=== PATIENT | male | born 1990 | race Caucasian/White ===

== ENCOUNTER 2022-05-07 10:44 | Emergency (ER) | payer OTHER, SELFPAY ==
--- NOTE | 2022-05-07 11:07 | ED.URI ---
HPI - URI/Sore Throat General Chief Complaint: Upper Respiratory Infection Stated Complaint: uri Time Seen by Provider: 05/07/22 11:07 Source: patient Mode of arrival: ambulatory Limitations: no limitations History of Present Illness HPI Narrative: Hay is a 31-year-old male patient presenting to the clinic today with complaints of sore throat times 2-3 days. He reports no fever or chills MD elicited complaint: sore throat and nasal congestion Related Data Allergies Allergy/AdvReac Type Severity Reaction Status Date / Time peanut Allergy Mild HIVES Unverified 08/23/08 13:59 Review of Systems Review of Systems: Pertinent positives per HPI. Patient denies any fever, chills, rash, headache, visual changes, dizziness, cough, shortness of breath, chest pain, palpitations, nausea, vomiting, diarrhea, constipation, abdominal pain, or any urinary issues. PMFSH Comments At the time of my signature, I reviewed and agree with the nursing past medical, surgical, social, and family history. There is no relevant family history pertinent to the patient complaint. Exam Narrative: General: Well-developed, well nourished, in no apparent distress Head: Normocephalic, atraumatic Eyes: Pupils equally round and reactive to light bilaterally, EOM intact, sclera and conjunctive clear, no discharge, lids normal Ears: TMs intact and clear, ear canals clear, no drainage, grossly hearing normal. Nose: Nares patent, no discharge, no inflammation, no sinus tenderness. Mouth: Oral pharynx without lesions or masses, good dentition, MMM. oropharynx red Neck: Supple, trachea midline, no enlargement of anterior or posterior cervical nodes, no thyroid masses or goiter palpable. Cardio: Regular rate and rhythm, s1 and s2 normal, no murmur appreciated. Resp: Clear to auscultation bilaterally, no rhonchi, rales, wheezing or rubs Course Course Emergency Course: Portions of this record may have been created with voice recognition software. Level of Care: Express Care Visit Vital Signs Vital signs: Vital Signs Temperature 37.1 C 05/07/22 11:14 Pulse Rate 67 05/07/22 11:14 Respiratory Rate 16 05/07/22 11:14 Blood Pressure 143/102 H 05/07/22 11:14 Pulse Oximetry 98 05/07/22 11:14 Oxygen Delivery Room Air 05/07/22 11:14 Temperature 37.1 C 05/07/22 11:14 Pulse Rate 67 05/07/22 11:14 Respiratory Rate 16 05/07/22 11:14 Blood Pressure 143/102 H 05/07/22 11:14 Pulse Oximetry 98 05/07/22 11:14 Oxygen Delivery Room Air 05/07/22 11:14 Vital signs reviewed MDM - URI/Sore Throat MDM Narrative Medical decision making narrative: At the time of visit patient is resting comfortably on exam table. strep screen was obtained and was positive in the clinic today. Prescription for amoxicillin was sent to the pharmacy. Supportive measures were discussed with the patient he voiced understanding discharge instructions agrees to treatment plan. Differential Diagnosis Differential diagnosis: Likely upper respiratory infection, otitis media, sinusitis, viral infection, bronchitis, influenza, pharyngitis and other ( COVID) Lab Data Labs: Strep Screen Positive Group A Strep *(Reference Range: Negative)* Strep Screen Positive Group A Strep *(Reference Range: Negative)* Discharge Plan Discharge Clinical Impression: Strep throat Patient Disposition: Home, Self-Care Condition: Stable Instructions: Antibiotic Form, Strep Throat (ED) Additional Instructions: Take prescription medications only as prescribed- amoxicillin Change toothbrush in 24 hours after initiation antibiotics Increase fluids and stay well hydrated Tylenol/motrin for pain/fever Flonase and OTC antihistamines as directed Vicks vapor rub to open sinuses Sinus rinses for congestion Cepacol spray, cough drops, throat lozenges, w
[2022-05-07 11:14] VITALS: BP 143/102; PULSE 67; RESP 16; TEMP 37.1; O2SAT 98
== END 2022-05-07 11:50 | disposition home or self-care (01) ==
PROVIDERS: Emergency Provider Nurse Practitioner Family
DX: J02.0 Streptococcal pharyngitis (principal)
CPT/HCPCS: 87880; 99213; G0463

== ENCOUNTER 2022-07-11 17:44 | Emergency (ER) | payer OTHER, SELFPAY ==
[2022-07-11] VITALS (9 sets, daily range): BP systolic 122–162; BP diastolic 78–94; PULSE 42–62; RESP 13–25; TEMP 36.9; O2SAT 98–100
--- NOTE | ~2022-07-11 | XR_ITS ---
EXAMINATION: XR chest 2V DATE: 07/11/2022 18:02 INDICATION: Chest pain TECHNIQUE: Frontal and lateral views of the chest are obtained COMPARISON: None available FINDINGS: The lungs are free of acute opacities. No pleural effusion or pneumothorax. The cardiomedia stinal silhouette is normal. There is mild thoracic spondylosis. IMPRESSION: 1. No acute cardiopulmonary abnormality. Reviewed, dictated and finalized at location F. 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
--- NOTE | 2022-07-11 17:47 | ECG_ITS ---
Measurements Intervals [place] Rate: 49 P: 37 [place]: 138 QRS: -16 QRSD: 105 T: 0 QT: 446 QTc: 404 Interpretive Statements SINUS BRADYCARDIA VOLTAGE CRITERIA FOR LVH BORDERLINE R WAVE PROGRESSION, ANTERIOR LEADS BORDERLINE T WAVE ABNORMALITY- INFERIOR LEADS BORDERLINE ECG NO PREVIOUS ECG AVAILABLE FOR COMPARISON Electronically Signed On 07-12-2022 6:35:19 SENIOR NETWORK ENGINEER by Johan Zarco D.O.
[2022-07-11 18:02] LABS: Basophils Percent Auto 0.4 % (0.2-1.2); Eosinophils Absolute Auto 0.2 K/mm3 (0-0.3); Eosinophils Percent Auto 2.7 % (0-4.4); Hematocrit 43.1 % (42.0-52.0); Hemoglobin 15.1 g/dL (14.0-18.0); Immature Granulocyte Absolute 0.02 K/mm3 (0.00-0.031); Immature Granulocyte Percent A 0.3 % (0-0.5); Lymphocytes Absolute Auto 3.39 K/mm3 (0.9-3.2); Lymphocytes Percent Auto 46.2 % (18.3-44.2); Mean Corpuscular Hemoglobin 31.1 pg (26-34); Mean Corpuscular Volume 88.9 fl (80-100); Mean Platelet Volume 9.3 fl (7.4-10.4); Monocytes Absolute Auto 0.6 K/mm3 (0.1-0.6); Monocytes Percent Auto 8.3 % (2.6-8.5); Neutrophils Absolute Auto 3.1 K/mm3 (1.3-6.7); Neutrophils Percent Auto 42.1 % (45.5-73.1); Platelet Count Result 242 k/mm3 (150-375); Red Blood Count 4.85 M/mm3 (4.6-6.20); Red Cell Distribution Width 12.6 % (11.5-14.5); White Blood Count 7.3 K/mm3 (4.5-10.0)
[2022-07-11 18:15] LABS: Prothrombin Time 12.6 Seconds (11.1-14.7)
[2022-07-11 18:17] LABS: Alanine Aminotransferase 93 U/L (6-50); Albumin Level 4.9 g/dL (3.5-5.1); Alkaline Phosphatase 99 U/L (38-126); Anion Gap 9 mmol/L (8-16); Aspartate Amino Transferase 51 U/L (17-59); Bilirubin,Total 0.7 mg/dL (0.2-1.3); Blood Urea Nitrogen 10 mg/dL (9-20); Calcium 9.3 mg/dL (8.4-10.2); Carbon Dioxide 28 mmol/L (22-30); Chloride 101 mmol/L (98-107); Estimated Glomerular Filt Rate > 60; Glucose 106 mg/dL (65-110); Lipase 77 U/L (23-300); Potassium 3.4 mmol/L (3.4-5.0); Sodium 138 mmol/L (137-145)
[2022-07-11 18:28] LABS: Troponin I < 0.012 ng/mL (0.000-0.034)
[2022-07-11 22:01] LABS: Troponin I < 0.012 ng/mL (0.000-0.034)
--- NOTE | 2022-07-11 23:15 | ECG_ITS ---
Measurements Intervals [place] Rate: 40 P: 29 [place]: 143 QRS: -18 QRSD: 108 T: -5 QT: 471 QTc: 388 Interpretive Statements SINUS BRADYCARDIA DELAYED PRECORDIAL R/S TRANSITION VOLTAGE CRITERIA FOR LVH BORDERLINE T WAVE ABNORMALITY- INFERIOR LEADS ABNORMAL ECG COMPARED TO ECG 07/11/2022 17:52:51 NO SIGNIFICANT CHANGES Electronically Signed On 07-12-2022 6:51:07 SHEATHER by Johan Zarco D.O.
--- NOTE | 2022-07-11 23:35 | PC.NURSE ---
Report received from COURTNEY Max. Assumed care of patient at this time.
--- NOTE | 2022-07-11 23:42 | ED.GENADULT ---
HPI - General Adult General Chief complaint: Chest Pain Stated complaint: chest pain Time Seen by Provider: 07/11/22 21:29 History of Present Illness HPI narrative: Patient a 31-year-old gentleman who presents the emergency department with chief complaint of chest pain. The patient reports this evening he had some tingling in his left arm and noticed little bit of tightness in the left arm and the left side of the chest. Patient decided to come to the emergency department for evaluation the patient reports no prior history of cardiac disease reports that he is not on a antihypertensives or other medications for blood pressure patient reports no significant family history of early cardiac disease patient's father had cardiac disease in his 50s. Related Data Allergies Allergy/AdvReac Type Severity Reaction Status Date / Time No Known Allergies Allergy Verified 07/11/22 21:29 Review of Systems Review of Systems: A 10 system review of systems was completed on the patient and is negative except for what is stated in the HPI. Nursing and ancillary documentation was reviewed. Exam Narrative: GENERAL: Well-appearing, well-nourished, and in no acute distress. HEAD: Normocephalic, atraumatic. EYES: PERRLA and EOMI. ENT: Nares clear, no rhinorrhea or epistaxis. Mucous membranes moist. NECK: Supple. CHEST: Clear to auscultation. No respiratory distress. HEART: Regular rate and rhythm. No murmur heard. Normal peripheral pulses. ABDOMEN: Soft, nontender, nondistended, normal active bowel sounds. EXTREMITIES: Normal range of motion. No edema. SKIN: Warm, dry, no rash. NEURO: No focal deficits. Alert and oriented x3. PSYCH: Normal mood and affect. Course Vital Signs Vital signs: Vital Signs Temperature 36.9 C 07/11/22 17:46 Pulse Rate 62 07/11/22 17:46 Respiratory Rate 18 07/11/22 17:46 Blood Pressure 162/94 H 07/11/22 17:46 Pulse Oximetry 100 07/11/22 17:46 Oxygen Delivery Room Air 07/11/22 17:46 Temperature 36.9 C 07/11/22 17:46 Pulse Rate 43 L 07/11/22 21:45 Respiratory Rate 23 H 07/11/22 21:45 Blood Pressure 129/79 07/11/22 21:16 Pulse Oximetry 98 07/11/22 21:45 Oxygen Delivery Room Air 07/11/22 17:46 Medical Decision Making MDM Narrative Medical decision making narrative: Differential diagnosis includes ACS, dysrhythmia, electrolyte abnormality. Initial EKG is sinus bradycardia rate of [address] elevation or ST depression Repeat EKG shows sinus bradycardia with a rate of [address] elevation or ST depression. Laboratory studies were obtained which showed negative troponin for 2 sets. Rest of electrolytes are within normal limits including potassium that was 3.4. Chest x-ray showed no focal infiltrates Patient's pain is much better at this time. Due to the patient's bradycardia the case was discussed with Dr. Zarco of cardiology who will see the patient in the office patient is to call the office on Thursday morning. Vital Signs Vital Signs: Vital Signs Temperature 36.9 C 07/11/22 17:46 Pulse Rate 62 07/11/22 17:46 Respiratory Rate 18 07/11/22 17:46 Blood Pressure 162/94 H 07/11/22 17:46 Pulse Oximetry 100 07/11/22 17:46 Oxygen Delivery Room Air 07/11/22 17:46 Temperature 36.9 C 07/11/22 17:46 Pulse Rate 43 L 07/11/22 21:45 Respiratory Rate 23 H 07/11/22 21:45 Blood Pressure 129/79 07/11/22 21:16 Pulse Oximetry 98 07/11/22 21:45 Oxygen Delivery Room Air 07/11/22 17:46 Lab Data 07/11/22 17:54 07/11/22 17:54 Labs: Lab Results 07/11/22 07/11/22 07/11/22 Range/Units 17:54 17:54 17:54 WBC 7.3 (4.5-10.0) K/mm3 RBC 4.85 (4.6-6.20) M/mm3 Hgb 15.1 (14.0-18.0) g/dL Hct 43.1 (42.0-52.0) % MCV 88.9 (80-100) fl MCH 31.1 (26-34) pg MCHC 35.0 (32-36) g/dl RDW 12.6 (11.5-14.5) % Plt Count 242 (150-375) k/mm3 MPV 9.3 (7.4-10.4) fl Immature Gran %
[2022-07-12 00:08] LABS: NT Pro B Type Natriuretic Pept 44 pg/mL (19.9-100)
== END 2022-07-12 | disposition home or self-care (01) ==
PROVIDERS: Emergency Medicine; Emergency Provider Emergency Medicine
DX: R07.9 Chest pain, unspecified (principal); R00.1 Bradycardia, unspecified
CPT/HCPCS: 36415; 71046; 80053; 83690; 83880; 84484; 85025; 85610; 85730; 93005; 99284

== ENCOUNTER 2022-09-01 08:30 | Outpatient (CLI) | payer OTHER, SELFPAY ==
--- NOTE | 2022-09-01 | ECHO_ITS ---
Patient Info Name: Hay Oshea Age: 32 years : 1990 Gender: Male Ht: 71 in Wt: 255 lbs BSA: 2.45 m2 HR: 50 bpm BP: 127 / 79 mmHg Heart Rhythm: Sinus Rhythm Technical Quality: Good Exam Date: 09/01/2022 9:00 AM Exam Location: [facility] Patient Status: Outpatient Admit Date: 09/01/2022 Staff Ordering Physician: Osbaldo Radford MD Tare Weigher: Melanie Justice RDCS Attending Provider: Osbaldo Radford MD Referring Physician: Prabhakar BLUM; Exam Type: CA echo doppler color flow Study Info Indications I10 - Essential (primary) hypertension R07.89 - Other chest pain Complete two-dimensional, color flow and Doppler transthoracic echocardiogram is performed. Strain analysis performed. Summary 1. Complete two-dimensional, color flow and Doppler transthoracic echocardiogram is performed. 2. Strain analysis performed. 3. Left ventricular chamber dimension is normal. 4. Left ventricular systolic function is normal, estimated at 65-70%. 5. There is mildly increased left ventricular wall thickness. 6. The left ventricular diastolic function is normal. 7. Global longitudinal strain is normal at -18 %. 8. There is mild tricuspid valve regurgitation. Left Ventricle Left ventricular chamber dimension is normal. Left ventricular systolic function is normal, estimated at 65-70%. There is mildly increased left ventricular wall thickness. The left ventricular diastolic function is normal. Global longitudinal strain is normal at -18 %. Right Ventricle Right ventricular chamber dimension is normal. Right ventricular systolic function is normal. Left Atria Left atrial chamber dimension is normal. Right Atria Right atrial chamber dimension is normal. Atrial Septum Intact interatrial septum visualized by color flow imaging. Aortic Valve The aortic valve is not well visualized. There is no aortic valve stenosis. There is trace aortic valve regurgitation. Pulmonic Valve The pulmonic valve is normal. There is no pulmonic valve stenosis. There is trace pulmonic regurgitation. Mitral Valve The mitral valve has normal leaflets. There is no mitral valve stenosis. There is trace mitral valve regurgitation. Tricuspid Valve The tricuspid valve leaflets are normal. There is no significant tricuspid valve stenosis. There is mild tricuspid valve regurgitation. No pulmonary hypertension, estimated pulmonary arterial systolic pressure is 33 mmHg. Pericardium/Pleural The pericardium appears normal. There is no pericardial effusion. Inferior Vena Cava Normal inferior vena cava with >50% collapse upon inspiration consistent with normal right atrial pressure, 8 mmHg. Aorta The aortic root size at the sinus of Valsalva is normal. Left Ventricular Outflow Tract Name Value Normal LVOT 2D LVOT Diameter 2.0 cm LVOT Doppler LVOT Peak Gradient 6 mmHg LVOT Mean Gradient 3 mmHg LVOT VTI 24 cm LVOT VTI/AV VTI Ratio 0.8 LVOT Stroke Volume
== END 2022-09-01 08:31 | disposition home or self-care (01) ==
LOC: ANHCARD 08:30
PROVIDERS: Visit Provider Internal Medicine Cardiovascular Disease
DX: I07.1 Rheumatic tricuspid insufficiency (principal); R07.89 Other chest pain; I10 Essential (primary) hypertension; Z82.49 Family history of ischemic heart disease and other diseases of the circulatory system; F17.200 Nicotine dependence, unspecified, uncomplicated
CPT/HCPCS: 93306

== ENCOUNTER 2023-05-13 10:11 | Emergency (ER) | payer OTHER, SELFPAY ==
[2023-05-13 10:19] VITALS: BP 131/88; PULSE 55; RESP 16; TEMP 37.6; O2SAT 98
--- NOTE | 2023-05-13 10:23 | ED.HA ---
HPI - Headache General Chief Complaint: Eye Problems Stated Complaint: left eye pain,headache Time Seen by Provider: 05/13/23 10:23 Source: patient Mode of arrival: ambulatory Limitations: no limitations History of Present Illness HPI Narrative: Hay is a 32-year-old male patient presenting to the clinic today with complaints of left eye discomfort (pressure/watering), ear pain, and headache x3 days. He reports no loss of hearing. Wears glasses and has not seen his eye doctor in a while and states he is due for an eye exam. Denies any fever or chills. Temperature was 37.6? C in the clinic today. Related Data Home Medications Medication Instructions Recorded Confirmed losartan 50 mg tablet 50 mg DAILY 05/13/23 05/13/23 Allergies Allergy/AdvReac Type Severity Reaction Status Date / Time No Known Allergies Allergy Verified 05/13/23 11:20 Review of Systems Review of Systems: Pertinent positives per HPI. Patient denies any fever, chills, rash, visual changes, dizziness, cough, runny nose, sore throat, shortness of breath, chest pain, palpitations, nausea, vomiting, diarrhea, constipation, abdominal pain, or any urinary issues. PMFSH Comments At the time of my signature, I reviewed and agree with the nursing past medical, surgical, social, and family history. There is no relevant family history pertinent to the patient complaint. Exam Narrative: General: Well-developed, well nourished, in no apparent distress Head: Normocephalic, atraumatic Eyes: Pupils equally round and reactive to light bilaterally, EOM intact, sclera and conjunctive clear, no discharge, lids normal, Wood's lamp exam was performed and shows no sign of corneal abrasion, no obvious foreign body visualized in the left eye Ears: TMs intact and clear, left ear canal with mild redness, tenderness to palpation over the left tragus and over the left mastoid bone with mild redness and swelling, no drainage, grossly hearing normal. Nose: Nares patent, no discharge, no inflammation, no sinus tenderness. Mouth: Oropharynx without lesions or masses, good dentition, MMM. Neck: Supple, trachea midline, no enlargement of anterior or posterior cervical nodes, no thyroid masses or goiter palpable. Cardio: Regular rate and rhythm, s1 and s2 normal, no murmur appreciated. Resp: Clear to auscultation bilaterally anteriorly and posteriorly, no rhonchi, rales, wheezing or rubs Course Course Emergency Course: Portions of this record may have been created with voice recognition software. Level of Care: Express Care Visit Vital Signs Vital signs: Vital Signs Temperature 37.6 C H 05/13/23 10:19 Pulse Rate 55 L 05/13/23 10:19 Respiratory Rate 16 05/13/23 10:19 Blood Pressure 131/88 05/13/23 10:19 Pulse Oximetry 98 05/13/23 10:19 Oxygen Delivery Room Air 05/13/23 10:19 Temperature 37.6 C H 05/13/23 10:19 Pulse Rate 55 L 05/13/23 10:19 Respiratory Rate 16 05/13/23 10:19 Blood Pressure 131/88 05/13/23 10:19 Pulse Oximetry 98 05/13/23 10:19 Oxygen Delivery Room Air 05/13/23 10:19 Vital signs reviewed Transfer Transfered to: [facility] Transportation: Other (Private) Transfer rationale: Headache, left mastoid pain, left eye pain Accepting physician: Dr. Chavez Transfer comments: private car Procedures Other Procedure Procedure 1: Other Procedure: Wood's lamp exam was performed-2 drops of topical anesthetic (tetracaine) was instilled with good anesthesia. Fluorescein stain of the left eye was performed without uptake of dye. No epithelial defect was noted. NO FB, ulcer or dendritic lesions. Upper lid was everted and no FB or lesions were noted. No Jef sign. Normal saline irrigation eye solution was performed and the patient tolerated the procedure well, no adverse reaction or complications. MDM - Headache MDM Narrative Medical decision making narrative: At the time of visit patient is resti
== END 2023-05-13 11:00 | disposition short-term general hospital (02) ==
LOC: EXPCOLL 10:14
PROVIDERS: Emergency Provider Nurse Practitioner Family
DX: H57.12 Ocular pain, left eye (principal); H92.02 Otalgia, left ear; R51.9 Headache, unspecified; I10 Essential (primary) hypertension
CPT/HCPCS: 99212; A9270; G0463

== ENCOUNTER 2023-05-13 11:14 | Emergency (ER) | payer OTHER, SELFPAY ==
--- NOTE | ~2023-05-13 | CT_ITS ---
EXAMINATION: CT facial bones w con DATE: 05/13/2023 14:31 INDICATION: Left mastoid tenderness with left eye pressure and ear pain TECHNIQUE: Computed tomography (CT) of the facial bones and maxillofacial region was performed with 7 5 mL Omnipaque-350 intravenous contrast. Coronal reconstructions were obtained. Automated exposure co ntrol and iterative reconstruction technique were employed. The dose-length product was 326.97 mGy-cm . COMPARISON: None. FINDINGS: Mastoid air cells and middle ear cavities are clear. There is subtle asymmetric soft tissue swelling and stranding about the left external auditory canal suggestive of otitis externa. The paranasal sinu ses are clear. Orbits are normal. The bilateral parotid and submandibular glands are normal. There ar e few asymmetrically enlarged but still normal-sized left periauricular and retroauricular lymph node s which are likely reactive. There are otherwise symmetric normal sized nodes at the face and visuali zed neck. No abnormal masses or fluid collections identified. Visualized portion of the brain are nor mal. Minimal upper cervical spondylosis. IMPRESSION: 1. Left otitis externa with likely reactive mild left periventricular lymphadenopathy. Reviewed, dictated and finalized at location A. ARE MANAGER IMPRESSION: 1. Left otitis externa with likely reactive mild left periventricular lymphaden opathy.
[2023-05-13 11:19] VITALS: BP 148/95; PULSE 58; RESP 18; TEMP 36.9; O2SAT 100
[2023-05-13 14:01] LABS: Basophils Absolute Auto 0.1 K/mm3 (0.0-0.1); Basophils Percent Auto 0.8 % (0.2-1.2); Eosinophils Absolute Auto 0.1 K/mm3 (0-0.3); Eosinophils Percent Auto 1.9 % (0-4.4); Hematocrit 45.5 % (42.0-52.0); Hemoglobin 15.2 g/dL (14.0-18.0); Immature Granulocyte Absolute 0.01 K/mm3 (0.00-0.031); Immature Granulocyte Percent A 0.2 % (0-0.5); Lymphocytes Absolute Auto 2.32 K/mm3 (0.9-3.2); Lymphocytes Percent Auto 37.4 % (18.3-44.2); Mean Corpuscular HGB Conc 33.4 g/dl (32-36); Mean Corpuscular Hemoglobin 30.5 pg (26-34); Mean Corpuscular Volume 91.4 fl (80-100); Mean Platelet Volume 9.6 fl (7.4-10.4); Monocytes Absolute Auto 0.6 K/mm3 (0.1-0.6); Monocytes Percent Auto 9.5 % (2.6-8.5); Neutrophils Absolute Auto 3.1 K/mm3 (1.3-6.7); Neutrophils Percent Auto 50.2 % (45.5-73.1); Platelet Count Result 250 k/mm3 (150-375); Red Blood Count 4.98 M/mm3 (4.6-6.20); White Blood Count 6.2 K/mm3 (4.5-10.0)
[2023-05-13 14:13] LABS: Alanine Aminotransferase 83 U/L (6-50); Albumin Level 4.4 g/dL (3.5-5.1); Alkaline Phosphatase 72 U/L (38-126); Anion Gap 7 mmol/L (8-16); Aspartate Amino Transferase 53 U/L (17-59); Bilirubin,Total 1.1 mg/dL (0.2-1.3); Blood Urea Nitrogen 9 mg/dL (9-20); Calcium 9.2 mg/dL (8.4-10.2); Carbon Dioxide 27 mmol/L (22-30); Chloride 104 mmol/L (98-107); Estimated CRCL calculation 194 ml/min; Estimated Glomerular Filt Rate > 60; Glucose 90 mg/dL (65-110); Potassium 4.1 mmol/L (3.4-5.0); Sodium 138 mmol/L (137-145)
--- NOTE | 2023-05-13 14:19 | ED.EYEPROB ---
HPI - Eye Problem General Chief complaint: Eye Problems Stated complaint: eye pressure Time Seen by Provider: 05/13/23 11:52 Source: patient Mode of arrival: ambulatory Limitations: no limitations History of Present Illness HPI Narrative: This is a 32-year-old male who presents to the ED with chief complaint of left eye and left headache x 4 days.. He was seen in urgent care prior to arrival and was told to come to the ED to rule out mastoiditis. He reports pain behind the left ear. He reports taking Tylenol today his pain a 7 to a 4. denies fevers, chills, skin lesions or drainage at the site of the ear. Denies of nausea, vomiting, numbness, weakness, sudden onset headache, vision changes or any injury to the eye or head. Related Data Home Medications Medication Instructions Recorded Confirmed losartan 50 mg tablet 50 mg DAILY 05/13/23 05/13/23 Allergies Allergy/AdvReac Type Severity Reaction Status Date / Time No Known Allergies Allergy Verified 05/13/23 11:20 Review of Systems Review of Systems: All systems as dictated in HPI Exam Narrative: GENERAL: Well-appearing, well-nourished, and in no acute distress. HEAD: Normocephalic, atraumatic. EYES: PERRLA and EOMI. Visual acuity intact. Pressures at 25mmhg bilaterally. ENT: Tenderness to the Left periauricular area diffusely, somewhat worse at the mastoid. No overlying skin changes to the mastoid. Bilateral TMs intact. Mild left canal erythema on the left side. Nares clear, no rhinorrhea or epistaxis. Mucous membranes moist. Oropharynx without tonsillar hypertrophy exudate or other lesions. NECK: Supple. No adenopathy or masses. CHEST: No respiratory distress. Clear to auscultation. No wheezes rales or rhonchi HEART: Regular rate and rhythm. No murmur heard. Normal peripheral pulses. ABDOMEN: Soft, nontender, nondistended, normal active bowel sounds. MSK: Normal range of motion. No edema. SKIN: Warm, dry, no rash. NEURO: Alert and oriented x3. No focal deficits. PSYCH: Normal mood and affect. Course Vital Signs Vital signs: Vital Signs Temperature 98.4 F 05/13/23 11:19 Pulse Rate 58 L 05/13/23 11:19 Respiratory Rate 18 05/13/23 11:19 Blood Pressure 148/95 H 05/13/23 11:19 Pulse Oximetry 100 05/13/23 11:19 Oxygen Delivery Room Air 05/13/23 11:19 Temperature 98.4 F 05/13/23 11:19 Pulse Rate 58 L 05/13/23 11:19 Respiratory Rate 18 05/13/23 11:19 Blood Pressure 148/95 H 05/13/23 11:19 Pulse Oximetry 100 05/13/23 11:19 Oxygen Delivery Room Air 05/13/23 11:19 MDM - Eye Problem MDM Narrative Medical decision making narrative: This is a 32-year-old male who presents to the ED with chief complaint of left headache and ear pain. Vitals are normal. Afebrile. Exam reveals erythematous external ear canal on the left. No drainage. Small amount of mastoid tenderness of CT scan was ordered. Lab work unremarkable. CT scan shows left otitis externa with likely reactive mild left periventricular lymphadenopathy. No immunocompromised condition. Discharged with antibiotic ear drops. Return precautions given and supportive measures discussed. Lab Data 05/13/23 13:55 05/13/23 13:55 Labs: Lab Results 05/13/23 Range/Units 13:55 WBC 6.2 (4.5-10.0) K/mm3 RBC 4.98 (4.6-6.20) M/mm3 Hgb 15.2 (14.0-18.0) g/dL Hct 45.5 (42.0-52.0) % MCV 91.4 (80-100) fl MCH 30.5 (26-34) pg MCHC 33.4 (32-36) g/dl RDW 13.0 (11.5-14.5) % Plt Count 250 (150-375) k/mm3 MPV 9.6 (7.4-10.4) fl Immature Gran % (Auto) 0.2 (0-0.5) % Neut % (Auto) 50.2 (45.5-73.1) % Lymph % (Auto) 37.4 (18.3-44.2) % [place] % (Auto) 9.5 H (2.6-8.5) % Eos % (Auto) 1.9 (0-4.4) % Baso % (Auto) 0.8 (0.2-1.2) % Lymph # (Auto) 2.32 (0.9-3.2) K/mm3 [place] # (Auto) 0.6 (0.1-0.6) K/mm3 Eos # (Auto) 0.1 (0-0.3) K/mm3 Baso # (Auto) 0.1 (0.0-0.1)
== END 2023-05-13 15:51 | disposition home or self-care (01) ==
PROVIDERS: Emergency Provider Physician Assistant
DX: H60.90 Unspecified otitis externa, unspecified ear (principal)
CPT/HCPCS: 36415; 70487; 80053; 85025; 99284; A9270; Q9967